=== PATIENT | female | born 1990 | race Caucasian/White ===

== ENCOUNTER 2025-01-11 11:43 | Emergency (ER) | payer BC, SELFPAY ==
[2025-01-11 11:46] VITALS: BP 137/85
[2025-01-11 12:05] LABS: Hematocrit 40.6 % (37.0-47.0); Hemoglobin 13.9 g/dL (12.0-16.0); Mean Corp Hgb Conc. 34.2 g/dL (33.0-37.0); Mean Corpuscular Volume 86.4 fL (81.0-99.0); Nucleated Red Blood Cells % 0 %; Platelet Count 410 10^3/uL (130-400); Red Cell Dist. Width 12.5 % (11.5-14.5)
[2025-01-11 12:22] LABS: HCG, Serum Qualitative Screen Negative
[2025-01-11 12:31] LABS: ALT (SGPT) 16 U/L (0-35); AST (SGOT) 21 U/L (14-36); Albumin 5.1 g/dl (3.5-5.0); Alkaline Phosphatase 60 U/L (38-126); Blood Urea Nitrogen 9 mg/dl (7-17); Calcium 9.7 mg/dl (8.4-10.2); Carbon Dioxide 26 mmol/L (22-30); Chloride 103 mmol/L (98-107); Glucose 99 mg/dl (70-99); Potassium 4.2 mmol/L (3.5-5.1); Sodium 138 mmol/L (135-145); Total Protein 8.2 g/dl (6.3-8.2); eGFR > 60.00
[2025-01-11 14:00] VITALS: BP 119/76
[2025-01-11] MEDS: TORADOL 15 MG IV (14:03)
[2025-01-11 14:06] LABS: Urine Character Clear (Clear)
[2025-01-11 14:30] LABS: Urine Squamous Cell >30 /LPF (Few)
[2025-01-11 14:32] LABS: Urine Red Blood Cell 0-2 /HPF (0-2); Urine White Cell 30-40 /HPF (0-5)
--- NOTE | 2025-01-11 15:50 | ED.GENMED ---
History of Present Illness
General
Chief Complaint: Abdominal Pain
Source: patient
Exam Limitations: none
Time Seen by Provider: 01/11/25 13:06
Nursing documentation reviewed up to this point in time: agreed with
History of Present Illness
History of Present Illness:
Patient is a 34-year-old female who presents to the emergency department for left sided pelvic pain. She states symptoms started yesterday afternoon and reports an acute onset stabbing pain in her left pelvic region. She does report some radiation
of pain into her groin and her rectum. Symptoms seem to dissipate however she woke again this morning around 2 AM with recurring sharp pain in similar region.
By this time�patient does report a dull pain in her left lower abdomen/pelvis however states the quality of the pain has improved since arrival.
She denies any associated fever, chills, dysuria. No diarrhea or constipation. No abnormal vaginal bleeding or discharge.
Patient states her last menstrual period was approximate 2 weeks ago. She does have a history of similar midcycle pain however has never been this severe.
Patient contacted her primary care provider who was unable to fit her in for an appointment until January 25 prompting visit to the emergency department. She follows with [facility] as her primary [facility] care. She does have a past
history of ovarian cyst.
Past History
Past History
ED Past Medical History: None; Negative GERD
ED Past Surgical History: None
Social History
Personal: Single
Living: with family
Review of Systems
Review of Systems
Allergies reviewed?: Yes
All Other Systems: ROS reviewed and negative except as documented in HPI and ROS
Phy Exam
Physical Exam
Physical Exam:
Vitals: Mildly hypertensive, otherwise vital signs stable. Afebrile
General: Patient is well appearing, no acute distress. Nontoxic appearing.
Skin: Warm and dry, no rashes or lesions
Head: Normocephalic, atraumatic
Eyes: Sclera nonicteric.
Throat: Protecting airway
Neck: Normal ROM
Cardiac: Regular rate and rhythm, no murmurs.
Pulm: Normal respiratory effort, no wheezes, rales, rhonchi heard on exam
Abdomen: Abdomen soft. Reproducible tenderness to left pelvic region. No tenderness at McBurney's point. No rebound tenderness or guarding. No palpable mass. No CVA tenderness.
Extremities: No evidence of cyanosis or edema. 2+ palpable DP pulses bilaterally.
Neuro: AAOx3. CN II-XII intact. No focal neurologic deficits.
Psychiatric: Normal affect.
Course
Orders/Labs/Results
Orders:
Orders
01/11/25 11:50
US Pelvis Only (non-obstetric) Urgent
Comment:
Reason For Exam: left pelvic pain, ovarian cyst history
01/11/25 11:51
Test Result ONCE
01/11/25 11:58
Complete Blood Count/With Diff Urgent
Comprehensive Metabolic Panel Urgent
HCG, Serum Qualitative Screen Urgent
01/11/25 13:45
CT Abd/pelvis W Iv Cont Urgent
Comment:
Reason For Exam: LLQ / pelvic pain
Ketorolac [Toradol] 15 mg IV NOW STA
01/11/25 13:58
Urinalysis Reflex To Culture Urgent
Date Specimen was Collected: 01/11/25
Time Specimen was Collected: 11:51
Urine Microscopic Reflex Cult Urgent
Urine Culture Urgent
NICK Source: U
Specimen Description:
Date Specimen was Collected: 01/11/25
Time Specimen was Collected: 11:51
01/11/25 15:34
Add On - Microbiology Urgent
Tests Added?: urine culture
Abnormal Lab Results
01/11/25 01/11/25
11:58 13:58
Plt Count 410 H 10^3/uL
(130-400)
Creatinine 0.5 L mg/dL
(0.6-1.0)
Albumin 5.1 H g/dl
(3.5-5.0)
Leukocyte Esterase Rfl 3+ A
(Negative)
Urine WBC (Reflex) 30-40 A /HPF
(0-5)
Urine Bacteria (Reflex) Moderate A
(Negative)
01/11/25 11:58
01/11/25 11:58
Vital Signs
Initial and Last Documented VS:
Initial Vital Signs
Temp Pulse Resp BP Pulse Ox
98.3 F 90 17 137/85 97
01/11/25 11:46 01/11/25 11:46 01/11/25 11:46 01/11/25 11:46 01/11/25 11:46
Last Documented Vital Signs
Temp Pulse Resp BP Pulse Ox
98.3 F 92 16 124/70 99
01/11/25 11:46 01/11/25 16:00 01/11/25 16:00 01/11/25 16:00 01/11/25 16:00
MDM/Problems Addressed
Differential Diagnosis Includes:
Not limited to: Ovarian cyst, ovarian torsion, endometriosis, fibroid, diverticulitis, cystitis, renal colic, etc.
MDM/Problems Addressed:
34-year-old female presenting with intermittent sharp left pelvic pain since yesterday. No fever or vomiting. No abnormal vaginal bleeding, discharge, or dysuria. No diarrhea or constipation. LMP approximately 2 weeks ago.
Vitals and exam as above. Prior to my evaluation � lab work was sent, which shows no acute abnormalities. A pelvic ultrasound was performed which was relatively unremarkable other than a dominant follicle in the left ovary.
Discussed with patient. Patient may be experiencing midcycle pain, secondary to dominant follicle on left side, however given significant degree of pain and essentially unremarkable ultrasound � shared decision making utilized and will proceed with
CT scan for further evaluation and to rule out other intra-abdominal process. Will check UA. Will give IV Toradol.
Update: CT scan shows 2.7 cm dominant follicle/cyst in left overy. No other acute abnormalities. This is likely the cause of patient presenting symptoms. UA obtained, which is somewhat equivocal for infection however, I favor contamination given >
30 squamous cells noted and no history of dysuria. Will hold abx pending culture.
Ultimately � patient has remained stable, and her pain is controlled after Toradol. Stable for discharge home with [facility] follow up, NSAIDS for pain, strict return precautions. Patient comfortable with plan.
Chronic conditions affecting care:
N/A
Acute Exacerbation and/or Progression of Chronic Illness:
N/A
*Radiology
Radiology exam reviewed: radiology read reviewed
*Pulse Oximetry
SaO2: 97
Oxygen Mode of Delivery: Room air
Patient hypoxic: no
*EKG
Interpreted by ED Provider?: NA
*Community Relations Assistant Interpretation
Rate: Community Relations Assistant- N/A
*Critical Care Note
Total Time (30-74mins, 75-104mins- exclusive of procedures): Not Applicable
ED Attending Note
-
Portions of this chart may have been created with voice recognition software.� Occasional wrong word or��sound alike� substitutions may have occurred due to the inherent limitations of voice recognition software.
Discharge Plan
Departure
Patient Disposition: Home (Routine Discharge)
Date of Disposition: 01/11/25
Time of Disposition: 15:28
Patient with high blood pressure during this ER visit?: Yes
Condition: Good
Discharge Problem:
Follicular cyst of left ovary
Instructions: Ovarian cyst - ED discharge instructions, BLOOD PRESSURE
Prescriptions:
No Action
famotidine [Pepcid AC] 20 MG tablet
20 tab PO DAILYPRN PRN (Reason: heartburn)
loratadine 10 MG tablet
10 tab PO DAILY
PNV no.95-ferrous fumarate-FA [] 1 EACH tablet
1 ea PO DAILY
ferrous sulfate [FeroSul] 325 MG tablet
325 mg PO Daily Qty: 20 0RF
Referrals:
Judy Narayanan CRNP [Family Provider, Internal Medicine]
Allyson Zarate DO [Active, Gynecology] - As needed
Activity Restrictions/Additional Instructions:
RETURN TO THE EMERGENCY DEPARTMENT WITH ANY FEVER, CHILLS, PERSISTENT/WORSENING ABDOMINAL PAIN, SEVERE BACK PAIN, INTRACTABLE NAUSEA/VOMITING, WORSENING OF CURRENT SYMPTOMS, OR ANY OTHER CONCERNS
- As discussed�your ultrasound and CT scan revealed a follicle/cyst on your left ovary measuring approximately 2.7 cm. This is likely the cause of your symptoms today.
- Stay well-hydrated. Take Motrin as needed for pain.
- Follow-up with [facility] for further evaluation/management as needed
Monitor your symptoms closely and return to the emergency department with any acute worsening/new symptoms or any other concerns
Interventions
Interventions:
*Risk Screen - Suicide Last Done: 01/11/25 11:49
*General Assessment Last Done: 01/11/25 11:49
*Neglect/Abuse Screening Last Done: 01/11/25 11:49
*ED COVID-19 Vaccine History Last Done: 01/11/25 11:49
*Nursing Disposition Last Done: 01/11/25 16:07
MA-Gmgewy-Hpzvvevvjx Assessment Last Done: 01/11/25 14:00
Discharge Date and Time
Discharge Date/Time: 01/11/25 16:07
Print Language: SWEDISH
[2025-01-11 16:00] VITALS: BP 124/70
== END 2025-01-11 16:07 | disposition home or self-care (01) ==
LOC: EMR 11:43
PROVIDERS: Nurse Practitioner; EMERGENCY PHYSICIAN Emergency Medicine; FAMILY PHYSICIAN Nurse Practitioner Family
DX: N83.02 Follicular cyst of left ovary (principal)
CPT/HCPCS: 96374; 99284; 74177; 76856; 80053; 81003; 81015; 84703; 85025; 87086; Q9967